=== PATIENT | female | born 1980 | race Caucasian/White ===

== ENCOUNTER 2017-06-06 01:08 | Inpatient (IN) | payer OTHER ==
[~2017-06-06] VITALS: Ht 170.2 cm; Wt 83.5 kg
[2017-06-06] MEDS ORDERED: Lactated Ringer's 1,000 ML IV PRN (01:19)
[2017-06-06] MEDS ORDERED: fentaNYL-PF 50 mCg/mL 2 mL Inj IVPUSH PRN (01:20)
[2017-06-06] MEDS ORDERED: Carboprost 250 mCg/mL Inj IM PRN ×2 (01:20→02:15)
[2017-06-06] MEDS ORDERED: Hemorrhage Kit, Post Partum XX ONE ×2 (01:20→02:15)
[2017-06-06] MEDS ORDERED: Sodium Chloride LOK Flush 10 mL Syringe IVFLUSH PRN (01:20)
[2017-06-06] MEDS ORDERED: Oxytocin 10 Unit/mL Inj IM PRN ×2 (01:20→02:15)
[2017-06-06] MEDS ORDERED: Methylergonovine 0.2 mg/mL Inj IM PRN ×2 (01:20→02:15)
[2017-06-06] MEDS ORDERED: Oxytocin 30 Units/500 mL LR 30 UNITS in IV Premix 1 EACH IV PRN ×2 (01:20→02:15)
[2017-06-06] MEDS ORDERED: Ondansetron 2 mg/mL 2 mL Inj IVPUSH PRN (01:20)
[2017-06-06] MEDS ORDERED: Sodium Citrate-Citric Acid 15 mL Solution ONE (01:36)
[2017-06-06] MEDS ORDERED: CeFAZolin 2 Gm/50 mL D5W Duplex Bag IV ONE (01:43)
[2017-06-06] MEDS ORDERED: Lactated Ringer's 1,000 ML IV SCH (02:13)
[2017-06-06] MEDS ORDERED: LANOlin HPA 7 Gm Ointment TOPICAL PRN (02:15)
[2017-06-06] MEDS ORDERED: Benzocaine (Dermoplast) 20% 60 Gm Spray TOPICAL PRN (02:15)
[2017-06-06] MEDS ORDERED: Witch Hazel-Glycerin Pads TOPICAL PRN (02:15)
[2017-06-06 02:19] LABS: Mean Corpuscular Hemoglobin 29.9 pg (27.0-35.0); Mean Corpuscular Volume 86.9 fL (81-100)
[2017-06-06] MEDS: oxyCODONE-Acetamin 5-325 mg Tablet PO PRN ×2 (02:41→06:51)
--- NOTE | 2017-06-06 03:01 | HP ---
[address] [address] HISTORY AND PHYSICAL PATIENT: CELSA MORLEY : 1980 MR#: [id number] ADMIT: 06/06/2017 JOB ID: [id number] HISTORY OF PRESENT ILLNESS: The patient is a 36-year-old, 2, para 1, at 40 weeks and 2 days with estimated due date May 29, 2017, being seen on Labor and Delivery floor because of complaint of contractions that are regular and strong and started at 11:40 p.m. [facility], the patient had spontaneous rupture of membranes, heavy meconium was noted. The heart rate tracing is reactive, category 1. The patient is having contractions every 2-3 minutes. PHYSICAL EXAMINATION: Vital signs: Temperature 36.2, blood pressure 118/76, respiratory rate 18, pulse 80. General: She is awake, alert, oriented x3, in distress because of contractions. HEENT: PERRLA. Chest: Clear, good respiratory effort. Cardiovascular system: Regular rate and rhythm. Abdomen is gravid, tender with contractions, nondistended, appropriate fundal height corresponding to gestational age. Vaginal exam: Ruptured membranes. Meconium noted. Cervix is 5 cm dilated, 80% effaced, 0 station. OBSTETRICAL HISTORY: History of spontaneous vaginal delivery at term in February 2015. MEDICAL HISTORY: Noncontributory. ALLERGIES: NKDA. LABORATORIES: Were reviewed. She is group B strep negative. Blood group and type O-positive, varicella immune, rubella immune. CARE: Was relatively uncomplicated besides advanced maternal age. She has not had any significant problems. ASSESSMENT AND PLAN: The patient is a 36-year-old, 2, para 1, at 40 weeks and 2 days, in active labor with spontaneous rupture of membranes, meconium, being admitted to Labor and Delivery. The patient would like to have an epidural, anesthesiologist was notified. The labs were sent. IV hydration will be started with Lactated Ringer's at 125 mL/h. We anticipate spontaneous vaginal delivery.
--- NOTE | 2017-06-06 03:23 | OP ---
[address] [address] OPERATIVE REPORT PATIENT: CELSA MORLEY : 1980 MR#: [id number] ADMIT: 06/06/2017 JOB ID: [id number] DATE OF SURGERY: 06/06/2017 PROCEDURE: Vacuum-assisted vaginal delivery. SURGEON: Marco Mercedes MD PREOPERATIVE DIAGNOSIS(ES): 1. A 36-year-old 2, para 1 with spontaneous rupture of membranes. 2. Heavy meconium. 3. bradycardia. 4. Estimated gestational age of 40 weeks and 2 days. POSTOPERATIVE DIAGNOSIS(ES): 1. A 36-year-old 2, para 2 with term . 2. bradycardia. 3. status post vacuum-assisted vaginal delivery. INDICATIONS FOR PROCEDURE: The patient is a 36-year-old 2, para 2 now who came to Labor and Delivery at around 1 o'clock a.m. with complaints of spontaneous rupture of membranes and contractions. The patient had a pelvic exam and the cervix was 5 cm dilated, 90% effaced, 0 station at 1:10 a.m. heart rate tracing initially was reactive, category 1. The amniotic fluid was not clear; it was heavy meconium. The exam at 1:35 a.m. showed dilation of 7-8 cm, station zero, effacement 100%. The patient had a nonreassuring heart rate tracing with bradycardia. PROCEDURE IN DETAIL: The decision was initially made to proceed with emergent delivery. The consent was obtained and the patient was brought to the operating room, where she was re-examined and found to be fully dilated with regular contractions every two to three minutes. bradycardia continued. The decision was made to proceed with vacuum-assisted vaginal delivery. The vacuum was applied twice with one popoff. Total vacuum application was 2 minutes and 30 seconds with two applications. With the second application of the vacuum at 1:50 a.m., the head of the was delivered and it was followed by vacuum-assisted vaginal delivery of a male . Respiratory therapists were present at delivery. As soon as the baby was delivered, he was transferred to awaiting respiratory therapist. The scores were 7 at one minute and 8 at five minutes. The weight is not available at the time of this dictation. The placenta was delivered at 1:56 a.m. It was found to be intact with a three-vessel cord. Cord blood was sent. Arterial blood gases of the from the cord blood were sent. The placenta was sent to Pathology. The patient had a second-degree midline vaginal perineal laceration that was repaired with two layers of 3-0 Vicryl. ESTIMATED BLOOD LOSS: 350 mL.
[2017-06-06] MEDS: Ascorbic Acid 500 mg Tablet PO SCH ×2 (12:07→17:43)
[2017-06-07 07:23] LABS: Mean Corpuscular Hemoglobin 29.3 pg (27.0-35.0); Mean Corpuscular Volume 89.5 fL (81-100)
--- NOTE | 2017-06-07 07:46 | PCM.DIOB ---
Audelia Pérez DO 06/07/17 0746: Obstetrical Disch Instruction Date of Service: Jun 07, 2017 Dates of Hospitalization Date of Hospital Admission Jun 06, 2017 at 01:18 Providers Admitting Physician: Leigh Akers MD Primary Care Physician: Ana Attending Physician: Leigh Akers MD Discharge Diagnosis Discharge Diagnosis Vacuum-assisted vaginal delivery Problems: Diet Discharge Diet: No restrictions Activity Discharge Activity-General: No restrictions, Pelvic Rest for 6 weeks, Try not to overdue, Be up and about, Balance rest and activity, Activity as pain allows , No lifting >15 pounds for 2 weeks Dressing and Incisional Care Hygiene: May shower, NO bathtub, hot tub or whirlpool, Sitz bath Additional Instructions Discharge Instructions Continue your vitamin. Be sure to follow up in 6 weeks at [facility]. Pelvic rest for 6 weeks (nothing per vagina including intercourse, tampons) If you have a fever greater than 100.4, please call [facility]. There is always someone concession attendant to talk to. If you have an increase in bleeding, call [facility]. If you have a lot of bleeding suddenly, especially if you have symptoms of dizziness & weakness with it, get emergency help. When you see [facility] in two weeks, you will be informed of the results of all the labs. If you start experiencing extreme depression, especially if you feel that you are a danger to yourself or your family, seek emergency help. You have been through a lot -- BE SURE TO TAKE CARE OF YOURSELF. Follow Up Plan Follow Up Plan Follow-up [facility] in 6 weeks. Call your provider for: Fever or Chills, Shortness of breath, Heavy vaginal bleeding, Heavy bleeding, Epigastric pain, Excessive constipation, Vaginal discomfort, Red painful breasts Gissell Soria MD 06/09/17 1428: Obstetrical Disch Instruction Attending Statement I saw patient and examined her. I agree with above plan. Audelia Pérez DO Jun 07, 2017 07:46 Gissell Soria MD Jun 09, 2017 14:28
[2017-06-07] MEDS ORDERED: DOCU-41 PO (07:47)
[2017-06-07] MEDS ORDERED: IBUP800T28 PO (07:47)
--- NOTE | 2017-06-07 07:59 | PCM.DC.OB ---
Obstetrical Discharge Summary Date of Service Jun 07, 2017 Date of hospital admission Jun 06, 2017 at 01:18 Date of Discharge: Jun 07, 2017 Providers Admitting Physician: Leigh Akers MD Primary Care Physician: Ana Attending Physician: Leigh Akers MD Problems: (1) Term delivered Status: Resolved ICD Code: O80 (2) Status post vacuum-assisted vaginal delivery Onset Date: 05/2017 Status: Acute ICD Code: Z87.42 (3) Qualifiers: Weeks of gestation: 40 weeks Qualified Code: Z3A.40 - 40 weeks gestation of Status: Resolved ICD Code: Z33.1 Brief History and Physical: The patient is a 36-year-old, now 2, para 2, at 40 weeks and 2 days with estimated due date May 29, 2017, being seen on Labor and Delivery floor because of complaint of contractions that are regular and strong and started at 11:40 p.m. Shortly after arrival to the [facility], the patient had spontaneous rupture of membranes, heavy meconium was noted. The heart rate tracing was reactive, category 1. The patient was having contractions every 2-3 minutes. BP 116/75 Pulse 78 Respiration 16 Temp 36.5 Constitutional: Well-developed, Well-nourished, Normal habitus HEENT: Atraumatic Lungs: Clear to Auscultation Heart: Normal S1, Normal S2, no Murmur, regular rate and rhythm Fundus Moderately Firm below the umbilicus Abdomen: Nontender Extremities: Warm, No Edema, Tenderness/Swelling Noted Neurological/Psychiatric: Alert, Oriented X3 Hospital Course: The patient is a now 36-year-old, 2, para 2, at 40 weeks and 2 days with estimated due date May 29, 2017, being seen on Labor and Delivery floor because of complaint of contractions that are regular and strong and starting at 11:40 p.m. Shortly after arrival to the [facility], the patient had spontaneous rupture of membranes, heavy meconium was noted. The heart rate tracing was reactive, category 1. The patient was having contractions every 2-3 minutes. IV hydration with Lactated Ringer's at 125 mL/h was started. The patient had a pelvic exam and the cervix was 5 cm dilated, 90% effaced, 0 station at 1:10 a.m. Repeat exam at 1:35 a.m. showed dilation of 7-8 cm, station zero, effacement 100%. The patient had a nonreassuring heart rate tracing with bradycardia. The decision was initially made to proceed with emergent delivery. The patient was brought to the operating room, where she was re-examined and found to be fully dilated with regular contractions every two to three minutes. bradycardia continued. The decision was made to proceed with vacuum-assisted vaginal delivery. The vacuum was applied twice with one popoff. Total vacuum application was 2 minutes and 30 seconds with two applications. With the second application of the vacuum at 1:50 a.m., the head of the was delivered and it was followed by vacuum-assisted vaginal delivery of a male . The scores were 7 at one minute and 8 at five minutes. The weight was 3276. The placenta was delivered with out incident. At the time of discharge the patient was medically stable. She was walking the halls independently, voiding without pain, had a bowel movement, had light lochia, and tolerating oral feedings. She denied headache, blurred vision, chest pain, shortness of breath, hip upper abdominal pain, heavy bleeding vaginally, and pain in calves. Docusate Sodium (Colace) 100 Mg Capsule 100 MG PO BID PRN PRN For Constipation Prescribed by: AUDELIA GARAY DO Ibuprofen (Ibuprofen) 800 Mg Tablet 800 MG PO Q6H PRN PRN For Pain Prescribed by: AUDELIA GARAY DO Disposition Home Attending Statement: I saw patient and examined her. I agree with above plan. Audelia Garay DO Jun 07, 2017 07:59 Gissell Soria MD Jun 09, 2017 14:31
[2017-06-07] MEDS: Ascorbic Acid 500 mg Tablet PO SCH (08:37)
[2017-06-07 09:06] VITALS: BP 104/67; PULSE 91; RESP 16
--- NOTE | 2017-06-10 16:18 | PATH ---
SURGICAL PATHOLOGY Attending Physician:Marco Mercedes MD CASE STATUS: Signed Out PATIENT NAME: CELSA MORLEY PID: [id number] : 1980 DATE COLLECTED:06/06/2017 00:00 SPECIMEN: Placenta CLINICAL HISTORY: INTRAUTERINE 40.2 WEEKS, BRADYCARDIA, VACUUM ASSISTED VAGINAL DELIVERY 1). PLACENTA FINAL DIAGNOSIS: 1.PLACENTA, VACUUM-ASSISTED VAGINAL DELIVERY: -SINGELTON PLACENTA, WEIGHT 360 GRAMS. - THREE VESSEL UMBILICAL CORD WITH NO EVIDENCE OF FUNISITIS. - MEMBRANES WITH NO EVIDENCE OF CHORIAMNIONITIS. - VILLOUS MORPHOLOGY APPROPRIATE FOR GESTATIONAL AGE. - FOCAL PLACENTAL INFARCT IDENTIFIED. ICD10 P03.3 GROSS DESCRIPTION: The specimen is received in formalin, labeled with the patient's name, and consists of an intact placenta which includes the placental disc (360 g, 14.5 x 14.3 x 2.6 cm), membranes and umbilical cord (length-2.6 cm, diameter-1.1 x 0.8 cm). The membranes are ruptured 3.2 cm from the free edge of the placenta and are semitranslucent. The umbilical cord is attached 0.8 cm from the edge of the placenta and contains 3 vessels. The surface is smooth and shiny with no evidence of meconium identified. The maternal surface is dark maroon with normal cotyledon formation. The placental body is spongy and contains a red-orange rubbery partially hemorrhagic nodule (1.2 x 0.9 x 0.5 cm) located 0.9 cm from the and 0.7 cm from the maternal surfaces. No other nodules, masses, or lesions are identified. Section code: (A) edge of placenta with membranes, umbilical cord; (B-E) placenta, 4 full-thickness sections. 06/07/17 JM MICRO DESCRIPTION: See diagnosis. ICD-9 CODES: CPT CODES: 1: 70551 Electronically Signed Out Curtis Vasquez MD [facility] [address], [place] [address] Technical component performed at [facility], [facility] [address], [place], [address]
== END 2017-06-07 09:56 | disposition home or self-care (01) | DRG 775 ==
LOC: FBCO 01:08 → FBC 01:18
PROVIDERS: ADMIT Obstetrics & Gynecology; ATTEND Obstetrics & Gynecology
PROC: 10D07Z6 Extraction of Products of Conception, Vacuum, Via Natural or Artificial Opening (ICD-10-PCS; principal; 2017-06-06)
PROC: 0KQM0ZZ Repair Perineum Muscle, Open Approach (ICD-10-PCS; 2017-06-06)
DX: O70.1 Second degree perineal laceration during delivery (principal); Z37.0 Single live birth; Z3A.40 40 weeks gestation of pregnancy; O77.0 Labor and delivery complicated by meconium in amniotic fluid